=== PATIENT | female | born 1995 | race Native Hawaiian/Other Pacific Islander ===

== ENCOUNTER 2021-12-13 17:10 | Emergency (ER) | payer OTHER ==
[~2021-12-13] VITALS: Ht 172.7 cm; Wt 81.6 kg
[2021-12-13 17:20] VITALS: TEMP 97.4
[2021-12-13 18:13] LABS: PLATELET COUNT 253 K/uL (152-353)
[2021-12-13 18:27] LABS: POTASSIUM 4.7 mmol/L (3.6-5.2)
[2021-12-13 23:15] VITALS: BP 112/72
== END 2021-12-13 23:15 | disposition home or self-care (01) ==
LOC: ED 17:10
PROVIDERS: Emergency Medicine
DX: F32.9 Major depressive disorder, single episode, unspecified (principal); Z20.822 Contact with and (suspected) exposure to COVID-19
CPT/HCPCS: 80053; 81000; 81025; 85027; 87635; 93005; 99285; U0003

== ENCOUNTER 2022-03-07 09:10 | Emergency (ER) | payer OTHER ==
[~2022-03-07] VITALS: Ht 172.7 cm; Wt 81.6 kg
[2022-03-07 09:10] VITALS: TEMP 97.1
[2022-03-07 09:38] LABS: PLATELET COUNT 271 K/uL (152-353)
[2022-03-07 10:00] LABS: POTASSIUM 4.3 mmol/L (3.6-5.2)
[2022-03-07 13:30] VITALS: BP 113/68
== END 2022-03-07 13:30 | disposition home or self-care (01) ==
LOC: ED 09:10
PROVIDERS: Emergency Medicine
DX: G40.901 Epilepsy, unspecified, not intractable, with status epilepticus (principal); W18.39XA Other fall on same level, initial encounter; Y92.89 Other specified places as the place of occurrence of the external cause
CPT/HCPCS: 80053; 80307; 80320; 81002; 81025; 84484; 85027; 85610; 85730; 93005; 96374; 96375; 99283; 99284; J2060